=== PATIENT | female | born 1960 | race Caucasian/White ===

== ENCOUNTER 2017-08-07 01:08 | Emergency (ER) | payer OTHER, SELFPAY ==
[~2017-08-07] VITALS: Ht 165.1 cm; Wt 72.6 kg
[~2017-08-07 01:08] MED LIST: ALBU.083IS; ALBU90OI61 INH; BIEST/PROGEST; BUDE6HFA INH; CEPH250A PO; FLUT110OIA; Ipratr-Albuterol3 ML IH; LEVSOD125 PO; LEVSOD25 PO; LORCET 5-325 M1 EACH PO; NAPR500 PO; ONDA4 PO; OXYACE7.5T; Omeprazole20 M1 PO; RXTRAM50 PO; SERT100 PO; SUCR1SU PO; Stool Softener100 MG PO; Synthroid100 MCG PO; THEO300ERA; TRAM50 PO; Zyloprim300 MG PO
[2017-08-07 02:27] LABS: PCO2 Arterial 39.4 mmHg (35-45); PO2 Arterial 52.2 mmHg (80-100); pH Blood Arterial 7.46 (7.35-7.45)
[2017-08-07 02:54] LABS: Troponin I <0.015 ng/mL (0.000-0.040)
[2017-08-07 02:55] LABS: BASOPHILS ABSOLUTE AUTO 0.02 K/mm3 (0.00-0.23); BASOPHILS PERCENT AUTO 1 % (0-2); EOSINOPHILS ABSOLUTE AUTO 0.14 K/mm3 (0.00-0.68); EOSINOPHILS PERCENT AUTO 4 % (0-6); Hematocrit 40.8 % (33.0-51.0); Hemoglobin 13.6 g/dL (11.5-16.0); IMMATURE GRAN ABSOLUTE AUTO 0.01 K/mm3 (0.00-0.10); IMMATURE GRAN PERCENT AUTO 0 % (0-1); LYMPHOCYTES ABSOLUTE AUTO 0.48 K/mm3 (0.84-5.20); LYMPHOCYTES PERCENT AUTO 12 % (21-46); MONOCYTES ABSOLUTE AUTO 0.46 K/mm3 (0.16-1.47); MONOCYTES PERCENT AUTO 12 % (4-13); Mean Corpuscular HGB 30.6 pg (26.0-34.0); Mean Corpuscular HGB Conc 33.3 g/dL (31.5-36.5); Mean Corpuscular Volume 92 fL (80-100); Mean Platelet Volume 9.2 fL (9.1-12.4); NEUTROPHILS ABSOLUTE AUTO 2.76 K/mm3 (1.96-9.15); NEUTROPHILS PERCENT AUTO 71 % (41-73); Platelet Count 107 K/mm3 (150-400); RDW Coefficient Variation 12.3 % (11.7-14.2); RDW Standard Deviation 41.1 fL (35.1-46.3); Red Blood Cell Count 4.44 M/mm3 (3.80-5.20); White Blood Cell Count 3.87 K/mm3 (4.00-11.30)
[2017-08-07 03:38] LABS: Influenza A Negative (NEGATIVE); Influenza B Negative (NEGATIVE)
[2017-08-07 03:56] LABS: Anion Gap 9 mmol/L (6-16); Blood Urea Nitrogen 9 mg/dL (8-24); Bun/Creatinine Ratio 12.9 (12.0-20.0); CO2, Blood 26 mmol/L (21-32); Calcium, Blood 9.4 mg/dL (8.5-10.1); Chloride, Blood 101 mmol/L (98-108); Glomerular Filtration Rate >60 (60-); Glucose, Blood 110 mg/dL (70-99); Sodium, Blood 136 mmol/L (136-145)
[2017-08-07] MEDS ORDERED: Albuterol2.5 MG/0.5 INH (05:04)
[2017-08-07] MEDS ORDERED: Prednisone20 MG PO (05:04)
[2017-08-08] MEDS ORDERED: BUPR150ER PO (11:28)
[2017-08-08] MEDS ORDERED: COLE1 PO (11:28)
[2017-08-08] MEDS ORDERED: BREO ELLIPTA 21 EACH (11:29)
[2017-08-08] MEDS ORDERED: ALBU90OI6 INH (11:30)
[2017-08-08] MEDS ORDERED: CLIMARA (11:33)
== END 2017-08-07 05:22 | disposition home or self-care (01) ==
LOC: ER 01:08
PROVIDERS: Emergency Medicine
DX: J45.901 Unspecified asthma with (acute) exacerbation (principal); Z88.2 Allergy status to sulfonamides; Z79.899 Other long term (current) drug therapy
CPT/HCPCS: 36415; 36600; 71046; 80048; 82803; 84484; 85025; 87804; 93005; 93010; 94640; 94644; 96372; 99284; J1885

== ENCOUNTER 2017-08-08 08:45 | Inpatient (IN) | payer OTHER, SELFPAY ==
[~2017-08-08] VITALS: Ht 165.1 cm; Wt 74.8 kg
[~2017-08-08 08:45] MED LIST changes: +Albuterol2.5 MG/0.5 INH; +Prednisone20 MG PO
[2017-08-08] MEDS ORDERED: BUPR150ER PO (11:28)
[2017-08-08] MEDS ORDERED: COLE1 PO (11:28)
[2017-08-08] MEDS ORDERED: BREO ELLIPTA 21 EACH (11:29)
[2017-08-08] MEDS ORDERED: ALBU90OI6 INH (11:30)
[2017-08-08] MEDS ORDERED: CLIMARA (11:33)
[2017-08-11] MEDS ORDERED: ACET325 (09:36)
[2017-08-11] MEDS ORDERED: BENZ100A PO (09:37)
[2017-08-11] MEDS ORDERED: ROBITUSSIN COU237 ML (09:38)
[2017-08-11] MEDS ORDERED: DOCU100 PO (09:39)
[2017-08-11] MEDS ORDERED: HYDR1TAB94 (09:40)
[2017-08-11] MEDS ORDERED: PRED20 PO (09:42)
[2017-08-11] MEDS ORDERED: PANT40 PO (09:46)
== END 2017-08-11 10:36 | disposition home or self-care (01) | DRG 189 ==
LOC: ER 08:45 → MEDS 10:09
DX: J96.01 Acute respiratory failure with hypoxia (principal); F33.9 Major depressive disorder, recurrent, unspecified; J44.1 Chronic obstructive pulmonary disease with (acute) exacerbation; E03.9 Hypothyroidism, unspecified; M10.9 Gout, unspecified; Z72.0 Tobacco use; Z79.899 Other long term (current) drug therapy; Z88.2 Allergy status to sulfonamides
CPT/HCPCS: 94640; 94644; 94760; 94761; 96374; 99285; J2930; J7030